=== PATIENT | female | born 1970 | race Caucasian/White ===

== ENCOUNTER 2024-05-30 18:26 | Emergency (ER) | payer OTHER, SELFPAY ==
[2024-05-30] VITALS (7 sets, daily range): BP systolic 116–161; BP diastolic 72–121; BMI 40.4
--- NOTE | 2024-05-30 18:30 | ED.GENMED ---
ED Provider Triage
<Elizabeth Conn PA-C - Last Filed: 05/30/24 18:35>
-
Patient seen by provider in Triage?: Seen in Triage
Attestation: A medical screening examination has been initiated by a qualified medical provider. Based on the assessment performed at this time, it has been determined that an emergent medical condition may exist and the patient has been informed
that further medical evaluation and possible additional diagnostic testing may be needed.
HPI: 54yoF here with intermittent SOB over the past few months. Feels like she has to take deep breaths. Also having mild chest tightness and chronic cough. Hx of unprovoked DVT in 2018.
GENERAL: Alert , in no apparent distress
EYE: No visual abnormalities.
NECK: Trachea midline
ENT: No visible abnormalities.
LUNGS: No acute respiratory distress
NEUROLOGICAL: Alert and oriented
SKIN: Skin intact. No visible changes.
MUSCULOSKELETAL: Moving extremities normally
PSYCH: Normal and appropriate interaction.
This is a medical evaluation conducted in person to initiate diagnostic evaluation and provide initial therapeutics. Please see further documentation by the treating clinician.
Cardiac labs, D-dimer, EKG, and CXR ordered.
History of Present Illness
<Elizabeth Conn PA-C - Last Filed: 05/30/24 18:35>
General
Chief Complaint: Breathing Problem
Time Seen by Provider: 05/30/24 18:53
<Hood Perez MD - Last Filed: 05/30/24 23:09>
General
Source: patient
Exam Limitations: none
History of Present Illness
History of Present Illness:
Patient with a sensation that she cannot take a deep breath. This is occurred intermittently for a long time, however has been getting worse and was much worse today. Tonight she felt slightly nauseous with it. She has a chest discomfort with
that but is more the feeling like she cannot take a deep breath over the top. She has no jaw pain back pain neck pain or arm pain. There is no exertional component.
Past History
<Hood Perez MD - Last Filed: 05/30/24 23:09>
Past History
ED Past Medical History: GERD, HTN, Hypercholesterolemia and Other (DVT)
ED Past Surgical History: Cardiac (Ablation) and Other ([place] teeth)
Review of Systems
<Hood Perez MD - Last Filed: 05/30/24 23:09>
Review of Systems
All Other Systems: Not applicable
Constitutional: Denies fever
Respiratory: Reports cough (Chronic dry)
Cardiac: Denies syncope
ABD/GI: Reports no symptoms
Phy Exam
<Hood Perez MD - Last Filed: 05/30/24 23:09>
Physical Exam
Physical Exam:
GENERAL: Alert and oriented in no apparent distress
EYE: Orbits normal.
NECK: Supple, no significant adenopathy.
ENT: Pharynx without erythema
CARDIAC: Regular rate and rhythm without any obvious murmurs.
LUNGS: Clear breath sounds,normal
ABDOMEN: Soft, without focal tenderness or distention
NEUROLOGICAL: Alert and oriented , grossly non-focal
SKIN: Warm and dry, no rash or lesion, no discoloration, skin intact.
MUSCULOSKELETAL: No edema,no deformity.Good color
PSYCH: Normal and appropriate interaction.
Scores
<Hood Perez MD - Last Filed: 05/30/24 23:09>
Heart Failure Risk
Heart Failure Risk Score: Not Applicable
Course
<Elizabeth Conn PA-C - Last Filed: 05/30/24 18:35>
Orders/Labs/Results
Orders:
Orders
05/30/24 18:32
Electrocardiogram (*1) Urgent
Reason for Study: Shortness of Breath
EKG- Treatment ONCE
05/30/24 18:33
CR Chest - 2 Views Urgent
Comment:
Reason For Exam: SOB
05/30/24 19:32
Complete Blood Count/With Diff Urgent
Comprehensive Metabolic Panel Urgent
D-Dimer Urgent
Troponin I Urgent
05/30/24 21:21
Electrocardiogram (*1) Stat
Reason for Study: Other
Other Reason for Exam: chest pain
EKG- Treatment ONCE
05/30/24 22:21
Troponin I Urgent
Abnormal Lab Results
05/30/24
19:32
MCV 80.6 L fL
(81.0-99.0)
Glucose 107 H mg/dl
(70-99)
Alkaline Phosphatase 144 H U/L
(38-126)
05/30/24 19:32
05/30/24 19:32
Vital Signs
Initial and Last Documented VS:
Initial Vital Signs
Temp Pulse Resp BP Pulse Ox
98.2 F 85 18 161/121 98
05/30/24 18:29 05/30/24 18:29 05/30/24 18:29 05/30/24 18:29 05/30/24 18:29
Last Documented Vital Signs
Temp Pulse Resp BP Pulse Ox
98.2 F 68 23 125/81 99
05/30/24 19:14 05/30/24 22:15 05/30/24 22:15 05/30/24 22:00 05/30/24 22:15
<Hood Perez MD - Last Filed: 05/30/24 23:09>
Orders/Labs/Results
Orders:
Orders
05/30/24 18:32
Electrocardiogram (*1) Urgent
Reason for Study: Shortness of Breath
EKG- Treatment ONCE
05/30/24 18:33
CR Chest - 2 Views Urgent
Comment:
Reason For Exam: SOB
05/30/24 19:32
Complete Blood Count/With Diff Urgent
Comprehensive Metabolic Panel Urgent
D-Dimer Urgent
Troponin I Urgent
05/30/24 21:21
Electrocardiogram (*1) Stat
Reason for Study: Other
Other Reason for Exam: chest pain
EKG- Treatment ONCE
05/30/24 22:21
Troponin I Urgent
Abnormal Lab Results
05/30/24
19:32
MCV 80.6 L fL
(81.0-99.0)
Glucose 107 H mg/dl
(70-99)
Alkaline Phosphatase 144 H U/L
(38-126)
05/30/24 19:32
05/30/24 19:32
Vital Signs
Initial and Last Documented VS:
Initial Vital Signs
Temp Pulse Resp BP Pulse Ox
98.2 F 85 18 161/121 98
05/30/24 18:29 05/30/24 18:29 05/30/24 18:29 05/30/24 18:29 05/30/24 18:29
Last Documented Vital Signs
Temp Pulse Resp BP Pulse Ox
98.2 F 68 23 125/81 99
05/30/24 19:14 05/30/24 22:15 05/30/24 22:15 05/30/24 22:00 05/30/24 22:15
<Hood Perez MD - Last Filed: 05/30/24 23:09>
MDM/Problems Addressed
Differential Diagnosis Includes:
Patient describing the sensation of not being able to take a full breath. Relatively atypical for cardiac. Not exertional. However she does have cardiac risk factors and has nonspecific EKG changes. Will plan on 2 troponins to EKGs. If remains
stable patient can be discharged to follow-up with cardiology from this standpoint. Highly doubt pulmonary emboli but with risk factors and history we will do a D-dimer as a screen. Low clinical suspicion. Chest x-ray to rule out any lung issue.
Clinically stable and nontoxic. Blood pressure will be rechecked.
<Hood Perez MD - Last Filed: 05/30/24 23:09>
*Pulse Oximetry
Patient hypoxic: no
*EKG
Interpreted by ED Provider?: Yes
Interpretation: abnormal
Comparison EKG: changes noted
Heart Rate: 75
Rate: normal
Rhythm: sinus
[place]: normal axis
Interval: normal interval
QRS Pattern: normal QRS
Ischemia: T-wave inversion
*Critical Care Note
Total Time (30-74mins, 75-104mins- exclusive of procedures): Not Applicable
Data Reviewed
Review of Other/Old Records Reveals: Labs, Records and Testing
<Hood Perez MD - Last Filed: 05/30/24 23:09>
Update Note
Update Note:
Patient is remained medically stable and nontoxic. Repeat EKG normal sinus rhythm at 69. T wave changes but unchanged. With risk factors patient will be referred to cardiology for follow-up
ED Attending Note
<Elizabeth Conn PA-C - Last Filed: 05/30/24 18:35>
-
Portions of this chart may have been created with voice recognition software.� Occasional wrong word or��sound alike� substitutions may have occurred due to the inherent limitations of voice recognition software.
Discharge Plan
Departure
Patient Disposition: Home (Routine Discharge)
Date of Disposition: 05/30/24
Time of Disposition: 23:07
Patient with high blood pressure during this ER visit?: Yes
Discharge Problem:
Anterior chest pain/dyspnea, Chronic cough
Instructions: Chest Pain CBC Follow Up, BLOOD PRESSURE
Prescriptions:
No Action
acetaminophen [Tylenol] 325 mg Tablet
650 mg PO Q6HPRN PRN (Reason: headaches)
atorvastatin 10 mg Tablet
10 mg PO HS
famotidine 40 mg Tablet
40 mg PO HS
atenolol 25 mg Tablet
25 mg PO DAILYPRN PRN (Reason: rapid heart beat)
aspirin 81 mg Tablet,Delayed Release (Dr/Ec)
81 mg PO DAILYPRN PRN (Reason: headaches)
pantoprazole 40 mg Tablet,Delayed Release (Dr/Ec)
40 mg PO DAILY
montelukast 10 mg Tablet
10 mg PO HS
azelastine 137 mcg (0.1 %) Aerosol,[place]
1 spray INTRANASAL HS
dicyclomine 10 mg Capsule
10 mg PO BIDPRN PRN (Reason: IBS)
Maalox Advanced 1,000-60 mg tablet,chewable
1 tab PO QID PRN (Reason: dyspepsia) Qty: 14 0RF
Referrals:
Weston Mcdermott MD [Family Provider] - Follow up in 2-3 days
Interventions
Interventions:
*Risk Screen - Suicide Last Done: 05/30/24 18:29
*General Assessment Last Done: 05/30/24 18:29
*Neglect/Abuse Screening Last Done: 05/30/24 18:29
ED- Fall Risk Assessment Last Done: 05/30/24 19:15
*ED COVID-19 Vaccine History Last Done: 05/30/24 18:29
ED- Cardiac Assessment Last Done: 05/30/24 19:15
ED- Pulmonary Assessment Last Done: 05/30/24 19:15
Discharge Date and Time
Print Language: ARABIC
[2024-05-30 19:42] LABS: % Basophils 0.6 % (0-2); % Eosinophils 0.8 % (0-6); % Immature Granulocytes 0.3 % (0-0.5); % Lymphocytes 26.2 % (20.5-51.1); % Monocytes 5.8 % (1.7-9.3); % Neutrophils 66.3 % (42.2-75.2); Absolute Eosinophils 0.1 10^3/uL (0-0.7); Absolute Lymphocytes 1.6 10^3/uL (1.2-3.4); Absolute Monocytes 0.4 10^3/uL (0.1-0.6); Absolute Neutrophils 4.2 10^3/uL (1.4-6.5); Hematocrit 39.1 % (37.0-47.0); Hemoglobin 13.1 g/dL (12.0-16.0); Mean Corp Hgb Conc. 33.5 g/dL (33.0-37.0); Mean Corpuscular Volume 80.6 fL (81.0-99.0); Mean Platelet Volume 8.9 fL (7.4-10.4); Nucleated Red Blood Cells % 0 %; Platelet Count 264 10^3/uL (130-400); Red Blood Cell Count 4.85 10^6/uL (4.20-5.40); Red Cell Dist. Width 14.4 % (11.5-14.5); White Blood Cell Count 6.3 10^3/uL (4.8-10.8)
[2024-05-30 19:52] LABS: D-Dimer 0.31 ug/mlFEU (0.00-0.50)
[2024-05-30 19:57] LABS: ALT (SGPT) 17 U/L (0-35); AST (SGOT) 21 U/L (14-36); Albumin 4.5 g/dl (3.5-5.0); Alkaline Phosphatase 144 U/L (38-126); Blood Urea Nitrogen 17 mg/dl (7-17); Calcium 9.6 mg/dl (8.4-10.2); Carbon Dioxide 25 mmol/L (22-30); Chloride 104 mmol/L (98-107); Estimated Creatinine Clearance 81 ml/min; Glucose 107 mg/dl (70-99); Sodium 141 mmol/L (135-145); Total Bilirubin 0.3 mg/dl (0.2-1.3); Total Protein 7.2 g/dl (6.3-8.2); eGFR > 60.00
[2024-05-30 20:04] LABS: Troponin I < 0.012 ng/ml
[2024-05-30 22:50] LABS: Troponin I < 0.012 ng/ml
== END 2024-05-30 23:21 | disposition home or self-care (01) ==
LOC: EMR 18:26
PROVIDERS: Physician Assistant; EMERGENCY PHYSICIAN Emergency Medicine; FAMILY PHYSICIAN Internal Medicine
DX: R07.89 Other chest pain (principal); R06.00 Dyspnea, unspecified; R05.3 Chronic cough; K21.9 Gastro-esophageal reflux disease without esophagitis; I10 Essential (primary) hypertension; E78.00 Pure hypercholesterolemia, unspecified; Z86.718 Personal history of other venous thrombosis and embolism
CPT/HCPCS: 99285; 71046; 80053; 84484; 85025; 85379; 93005

== ENCOUNTER → 2024-06-12 15:43 | Outpatient (REF) | payer OTHER, SELFPAY | LOC: HWRCS 15:43 | PROVIDERS: ATTENDING PHYSICIAN Internal Medicine Cardiovascular Disease | DX: R06.02 Shortness of breath (principal); I10 Essential (primary) hypertension; R94.31 Abnormal electrocardiogram [ECG] [EKG]; R01.1 Cardiac murmur, unspecified | CPT/HCPCS: 93306 ==